=== PATIENT | male | born 1965 | race Caucasian/White ===

== ENCOUNTER 2017-01-24 17:08 | Emergency (ER) | payer MEDICARE, MEDICAID ==
[~2017-01-24] VITALS: Ht 170.2 cm; Wt 95.3 kg
[2017-01-24] MEDS ORDERED: ATEN100T PO (17:27)
[2017-01-24] MEDS ORDERED: CEPH-570 PO (17:27)
[2017-01-24] MEDS ORDERED: LEVE500T9 PO (17:27)
[2017-01-24] MEDS ORDERED: AMLO5TAB4 PO (17:27)
[2017-01-24] MEDS ORDERED: SIMV40TA5 PO (17:27)
[2017-01-24] MEDS ORDERED: LORAZEPAM 2 MG/1 ML VIAL IV ONE (17:30)
[2017-01-24] MEDS ORDERED: LORAZEPAM 2 MG/1 ML VIAL ONE (17:41)
[2017-01-24 17:55] LABS: CREATININE 1.1 mg/dL (0.6-1.3); POTASSIUM 3.6 mmol/L (3.5-5.1)
[2017-01-24 18:24] VITALS: BP 110/79
--- NOTE | 2017-01-24 18:24 | NUR ---
Patient discharged to home in stable conditon. Written and verbal after care instructions given. Patient verbalizes understanding of instructions.pt is calling pt mother to come and pickle pumper the pt.
== END 2017-01-24 19:36 | disposition home or self-care (01) ==
LOC: ER 17:10
DX: G40.909 Epilepsy, unspecified, not intractable, without status epilepticus (principal); I10 Essential (primary) hypertension; E78.5 Hyperlipidemia, unspecified
CPT/HCPCS: 36415; 80048; 96374; 99284; A4663; J2060